=== PATIENT | male | born 1945 | race Caucasian/White ===

== ENCOUNTER 2021-07-13 07:00 | Day surgery (SDC) | payer BC, SELFPAY ==
[~2021-07-13] VITALS: Ht 162.6 cm; Wt 74.4 kg
[2021-07-13] MEDS ORDERED: CEFAZOLIN SOD 1 GM in D5W 50 ML IV ONE (08:15)
[2021-07-13] MEDS ORDERED: MIDAZOLAM HCL 2 MG/2 ML VIAL (VERSED) IVP PRN (10:00)
[2021-07-13] MEDS ORDERED: METOCLOPRAMIDE HCL 10 MG/2 ML VIAL IVP PRN (10:00)
[2021-07-13] MEDS ORDERED: LR 1,000 ML IV SCH (10:00)
[2021-07-13] MEDS ORDERED: HYDROmorphone 1 MG/ML INJ. CARTRIDGE IVP PRN ×3 (10:00→11:00)
[2021-07-13] MEDS ORDERED: MEPERIDINE HCL/PF 25 MG/ML DISP.SYRIN IVP PRN (10:00)
[2021-07-13] MEDS ORDERED: BUPIVACAINE LIPOSOME/PF 266 MG/20 ML VIAL INFIL ONE (10:04)
[2021-07-13] MEDS ORDERED: MIDAZOLAM HCL 5 MG/ML VIAL (VERSED) IV ONE (11:00)
[2021-07-13] MEDS ORDERED: HYDROcodone/ACETAMIN 5-325 MG TAB (NORCO/ VICODIN) PO PRN ×2 (11:00)
[2021-07-13] MEDS ORDERED: fentaNYL CITRATE/PF 100 MCG/2 ML AMP ONE (11:00)
[2021-07-13] MEDS ORDERED: BUPIVACAINE /EPINEPHRINE/PF 0.25% 30 ML VIAL INJ ONE (11:00)
[2021-07-13] MEDS ORDERED: PROPOFOL 200MG/ 20ML VIAL (DIPRIVAN) IV ONE (11:00)
[2021-07-13] MEDS ORDERED: SEVOFLURANE 15 MIN GAS INH ONE (11:00)
[2021-07-13] MEDS ORDERED: ONDANSETRON HCL 4 MG/2 ML VIAL ONE (11:00)
[2021-07-13] MEDS ORDERED: LR 1,000 ML IV.SOLN IV ONE (11:00)
[2021-07-13] MEDS ORDERED: NS IRRIG SOLN 1000 ML IR ONE (11:00)
[2021-07-13] MEDS ORDERED: WATER FOR IRRIGATION,STERILE 1,000 ML IRRIG.SOLN IR ONE (11:00)
[2021-07-13] MEDS ORDERED: NS 50 ML BAG IV ONE (11:00)
[2021-07-13] MEDS ORDERED: DEXAMETHASONE SOD PHOSPHATE 4 MG/ML VIAL ONE (11:00)
[2021-07-13] MEDS ORDERED: D5/0.45 NS 1,000 ML IV SCH (11:00)
[2021-07-13] MEDS ORDERED: METOPROLOL TARTRATE 5 MG/5 ML AMPUL ONE (11:00)
[2021-07-13 14:38] VITALS: BP_SYST 140
== END 2021-07-13 14:20 | disposition home or self-care (01) ==
LOC: SDS 07:00 → SMU 07:01 → SDS 14:10
PROVIDERS: ATTEND Colon & Rectal Surgery
DX: K64.5 Perianal venous thrombosis (principal); K64.8 Other hemorrhoids; K64.4 Residual hemorrhoidal skin tags; F03.90 Unspecified dementia, unspecified severity, without behavioral disturbance, psychotic disturbance, mood disturbance, and anxiety; E78.5 Hyperlipidemia, unspecified; K21.9 Gastro-esophageal reflux disease without esophagitis; G47.00 Insomnia, unspecified; G40.909 Epilepsy, unspecified, not intractable, without status epilepticus; Z79.899 Other long term (current) drug therapy; Z20.822 Contact with and (suspected) exposure to COVID-19
CPT/HCPCS: 36415; 45541; 46260; 87426; 88304; C9290; J0690; J1100; J2250; J2405; J2704; J3010; J3490 ×2; J7060; J7120